=== PATIENT | female | born 1985 | race Caucasian/White ===

== ENCOUNTER → 2019-09-23 | Outpatient (CLI) | payer OTHER ==
[~2019-09-23] MED LIST: EFFEXOR XR75 MG PO; GILDESS FE 1-21 EACH PO; LEVOTHYROXINE0.05 MG PO; TRANXENE T-TAB7.5 MG PO; ZANAFLEX4 MG PO
== END ==
LOC: M.RAD 12:23
DX: R05 Cough (principal)